=== PATIENT | female | born 1970 | race American Indian/Alaskan Native ===

== ENCOUNTER 2016-08-29 07:59 | Emergency (ER) | payer SELFPAY ==
[2016-08-29 08:31] VITALS: BP 145/95
[2016-08-29] MEDS ORDERED: NORCO 5/325 PO ONE (10:42)
[2016-08-29] MEDS ORDERED: TORADOL IM ONE (10:42)
--- NOTE | 2016-08-29 10:49 | Emergency Department Report ---
ED Neck Pain/Injury HPI - General Chief Complaint: Neck Pain/Injury Stated Complaint: PAIN IN NECK Time Seen by Provider: 08/29/16 10:39 Mode of arrival: Ambulatory Limitations: No Limitations - History of Present Illness Initial Comments: 46-year-old -[place] female with a past medical history of diabetes and bipolar comes in for complaint of right sided neck pain that radiates to her right shoulder for approximately one week. Patient reports that the pain is worse with movement. States that she did try Motrin and Vicodin that she got from her mother's states that it only caused temporary relief. Patient reports she is going through a lot recently her spouse . Patient does admit that she's been moving a lot. MD Complaint: neck pain -: week(s) (1) Radiation: right shoulder Severity: severe - Related Data Home Medications Medication Instructions Recorded Confirmed Last Taken FLUoxetine HCL [PROzac] 40 mg PO QDAY 01/21/14 01/21/14 Unknown Quetiapine Fumarate [SEROquel XR] 300 mg PO QDAY 01/21/14 01/21/14 01/21/14 300 Previous Rx's Medication Instructions Recorded Last Taken Type oxyCODONE /ACETAMINOPHEN [Percocet 1 tab PO Q6H PRN #12 tablet 01/21/14 Unknown Rx 5/325 mg] metFORMIN [Glucophage] 500 mg PO BIDDIAB #60 tablet 01/22/14 Unknown Rx HYDROcodone/APAP 5-325 [[place] 1 each PO Q6HR PRN #7 tablet 01/19/15 Unknown Rx 5/325] Lansoprazole [Prevacid] 15 mg PO BID #30 cap 01/19/15 Unknown Rx Ondansetron [Zofran TAB] 4 mg PO Q8HR PRN #7 tablet 01/19/15 Unknown Rx Cyclobenzaprine [Flexeril] 10 mg PO TID PRN #15 tablet 08/29/16 Unknown Rx Naproxen [Naprosyn TAB] 500 mg PO BID #20 tablet 08/29/16 Unknown Rx traMADol [Ultram 50 MG tab] 50 mg PO Q6HR PRN #20 tablet 08/29/16 Unknown Rx Allergies Allergy/AdvReac Type Severity Reaction Status Date / Time No Known Allergies Allergy Verified 08/29/16 08:24 ED Review of Systems ROS: Stated complaint: PAIN IN NECK Other details as noted in HPI Constitutional: denies: chills, fever Eyes: denies: eye pain, eye discharge, vision change ENT: denies: ear pain, throat pain Respiratory: denies: cough, shortness of breath, wheezing Cardiovascular: denies: chest pain, palpitations Endocrine: no symptoms reported Gastrointestinal: denies: abdominal pain, nausea, diarrhea Genitourinary: denies: urgency, dysuria, discharge Musculoskeletal: other (neck pain right side radiates to right shoulder) Neurological: denies: headache, weakness, paresthesias ED Past Medical Hx - Past Medical History Hx Congestive Heart Failure: No Hx Diabetes: Yes (NO MEDS) Hx GERD: Yes Hx Psychiatric Treatment: Yes (DEPRESSION / BIPOLAR) Hx Asthma: No Hx COPD: No Hx Dementia: No Additional medical history: gout - Surgical History Additional Surgical History: tubal ligation. left rotator cuff repair - Social History Smoking Status: Current Every Day Smoker Substance Use Type: Alcohol - Medications Home Medications: Home Medications Medication Instructions Recorded Confirmed Last Taken Type FLUoxetine HCL [PROzac] 40 mg PO QDAY 01/21/14 01/21/14 Unknown History Quetiapine Fumarate [SEROquel XR] 300 mg PO QDAY 01/21/14 01/21/14 01/21/14 History 300 oxyCODONE /ACETAMINOPHEN [Percocet 1 tab PO Q6H PRN #12 tablet 01/21/14 Unknown Rx 5/325 mg] metFORMIN [Glucophage] 500 mg PO BIDDIAB #60 tablet 01/22/14 Unknown Rx HYDROcodone/APAP 5-325 [[place] 1 each PO Q6HR PRN #7 tablet 01/19/15 Unknown Rx 5/325] Lansoprazole [Prevacid] 15 mg PO BID #30 cap 01/19/15 Unknown Rx Ondansetron [Zofran TAB] 4 mg PO Q8HR PRN #7 tablet 01/19/15 Unknown Rx Cyclobenzaprine [Flexeril] 10 mg PO TID PRN #15 tablet 08/29/16 Unknown Rx Naproxen [Naprosyn TAB] 500 mg PO BID #20 tablet 08/29/16 Unknown Rx traMADol [Ultram 50 MG tab] 50 mg PO Q6HR PRN #20 tablet 08/29/16 Unknown Rx ED Physical Exam - General Limitations: No Limitations General appearance: alert, in no apparent distress - Eye Eye exam: Present: normal appearance - ENT ENT exam: Present: normal exam, mucous membranes moist - Neck Neck exam: Present: normal inspection, tenderness (to the right paracervical and right trapezius.) - Respiratory Respiratory exam: Present: normal lung sounds bilaterally - Cardiovascular Cardiovascular Exam: Present: regular rate, normal rhythm, normal heart sounds ED Course Vital Signs 08/29/16 08:28 Temperature 98.2 F Pulse Rate 87 Respiratory 17 Rate Blood Pressure 145/95 O2 Sat by Pulse 100 Oximetry - Reevaluation(s) Reevaluation #1: 08/29/16 11:47 Patient reports that she feels better after having the injection and the [place]. She still reports that there is some pain. ED Medical Decision Making - Medical Decision Making Assessment evaluated by this provider fast track. Discussed the patient we'll give her Toradol injection and see if we can get her feeling better as well as [place] 5/325. Patient be discharged home on a muscle relaxant pain medication. Patient verbalizes understanding. Also discussed the patient that she needs to follow up with her primary care provider for pain management. Patient verbalized understanding Critical care attestation.: If time is entered above; I have spent that time in minutes in the direct care of this critically ill patient, excluding procedure time. ED Disposition Clinical Impression: Acute strain of neck muscle Qualifiers: Encounter type: initial encounter Qualified Code(s): S16.1XXA - Strain of muscle, fascia and tendon at neck level, initial encounter Disposition: DISCHARGED TO HOME OR SELFCARE Is pt being admited?: No Does the pt Need Aspirin: No Condition: Stable Additional Instructions: Please take muscle relaxants and pain medication as prescribed. Please follow- up with her primary care provider for further evaluation and ongoing pain management. Prescriptions: Cyclobenzaprine [Flexeril] 10 mg PO TID PRN #15 tablet PRN Reason: Muscle Spasm Naproxen [Naprosyn TAB] 500 mg PO BID #20 tablet traMADol [Ultram 50 MG tab] 50 mg PO Q6HR PRN #20 tablet PRN Reason: Pain Referrals: PRIMARY CARE, [Primary Care Provider] - 3-5 Days Forms: Accompanied Note, Work/School Release Form(ED)
== END 2016-08-29 12:06 | disposition home or self-care (01) ==
LOC: ED 07:59
DX: S16.1XXA Strain of muscle, fascia and tendon at neck level, initial encounter (principal); M25.511 Pain in right shoulder; E11.9 Type 2 diabetes mellitus without complications; K21.9 Gastro-esophageal reflux disease without esophagitis; F17.200 Nicotine dependence, unspecified, uncomplicated; X58.XXXA Exposure to other specified factors, initial encounter; Y93.89 Activity, other specified; Y99.8 Other external cause status; Y92.89 Other specified places as the place of occurrence of the external cause
CPT/HCPCS: 82962; 96372; 99283; J1885

== ENCOUNTER 2018-01-16 06:13 | Day surgery (SDC) | payer OTHER ==
[2018-01-16] MEDS ORDERED: ECOTRIN PO NR (06:48)
[2018-01-16] MEDS ORDERED: NACL 0.9% 500 ML 500 ML IV SCH (07:00)
[2018-01-16 07:48] LABS: Basophils # (Auto) 0.1 K/mm3 (0.0-0.1); Basophils % (Auto) 0.9 % (0.0-1.8); Eosinophils # (Auto) 0.1 K/mm3 (0.0-0.4); Eosinophils % (Auto) 0.8 % (0.0-4.3); Hematocrit 34.5 % (30.3-42.9); Hemoglobin 11.5 gm/dl (10.1-14.3); Lymphocytes # (Auto) 2.3 K/mm3 (1.2-5.4); Lymphocytes % (Auto) 29.7 % (13.4-35.0); Mean Corpuscular HGB Conc 33 % (30-34); Mean Corpuscular Hemoglobin 30 pg (28-32); Mean Corpuscular Volume 88 fl (79-97); Monocytes # (Auto) 0.4 K/mm3 (0.0-0.8); Monocytes % (Auto) 5.6 % (0.0-7.3); Platelet Count 156 K/mm3 (140-440); Red Blood Count 3.91 M/mm3 (3.65-5.03); Red Cell Distribution Width 14.4 % (13.2-15.2)
[2018-01-16 07:58] LABS: INR 0.88 (0.87-1.13)
[2018-01-16 07:59] LABS: Partial Thromboplastin Time 29.5 Sec. (24.2-36.6)
[2018-01-16 08:05] LABS: BUN/Creatinine Ratio 20; Blood Urea Nitrogen 14 mg/dL (7-17); Calcium 9.1 mg/dL (8.4-10.2); Hemolysis Index 3
[2018-01-16] MEDS ORDERED: VERSED ONE (08:26)
[2018-01-16] MEDS ORDERED: HEPARIN 10,000 UNITS/10 ML ONE (08:26)
[2018-01-16] MEDS ORDERED: HEPARIN/NS 5000 UNIT/500ML(CATH LAB) 1,000 ML IR ONE (08:26)
[2018-01-16] MEDS ORDERED: CALAN ONE (08:27)
[2018-01-16] MEDS ORDERED: SUBLIMAZE ONE (08:27)
[2018-01-16] MEDS ORDERED: NITROGLYCERIN SYRINGE 3 ML ONE (08:27)
[2018-01-16] MEDS ORDERED: XYLOCAINE 2% INFILTRATI ONE (08:27)
--- NOTE | 2018-01-16 10:31 | Cardiac Catherization Report ---
CARDIAC CATHETERIZATION REFERRING PHYSICIAN: Dr. Akira Armijo INDICATION FOR PROCEDURE: The patient is a pleasant a 47-year-old female with a history of obesity, hypertension, hyperlipidemia, abnormal treadmill stress test, recurrent chest pain, referred for left heart catheterization. Risks, benefits, and potential alternatives were explained in length prior to obtaining informed consent. PROCEDURE IN DETAIL: The patient was brought to the supervisor dental laboratory in a postabsorptive state, prepped and draped in a sterile fashion. Jose's test in right hand was normal. A 2 mL of 2% lidocaine used to anesthetize the right wrist. A standard 6-[place]ish hydrophilic sheath used to cannulate the right radial artery via modified Seldinger technique. All exchanges performed to exchange a J-tip guidewire. JL3.5 catheter used to engage the left main. No dampening or ventricularization. Cineangiography performed in all projections. Next, catheter exchanged for a JR4 catheter used to cross the aortic valve under fluoroscopic guidance. Left ventriculography performed in 30 ARREDONDO and 30 FRANCO projections via hand injections. Catheter flushed. Manual pullback performed with continuous pressure monitoring. Catheter used to engage the right coronary. No dampening or ventricularization. Cineangiography performed in all projections. Next, due to recurrent chest pain and nonobstructive coronary disease and hypertension, we proceeded with root aortogram in the FRANCO projection with a power injector/pigtail catheter. Next, catheter removed from the body of wire, sheath removed. Manual pressure used to achieve hemostasis. DATA: Aortic pressure is 180/90, LV pressure is 180. LVEDP of 20 mmHg. Left ventriculography revealed normal systolic performance with estimated ejection fraction of 55% to 60%. No evidence of aortic stenosis. CORONARY ANATOMY: It is a right dominant system. Left main is short. No significant disease, bifurcates left anterior descending and left circumflex. Left circumflex is a moderate sized vessel, courses AV groove. No significant disease in the left circumflex. Scattered luminal irregularities are noted. LAD is a moderate sized vessel, courses anterior interventricular groove. No significant disease in the LAD or diagonal branches. Right coronary is a moderate sized vessel, courses AV groove. No significant disease in the right dominant right coronary, scattered luminal irregularities. Root aortogram reveals normal contour, normal caliber, no evidence of dissection or penetrating aortic ulcer. Normal great vessel anatomy. I directly supervised the administration of moderate sedation from 9:07 a.m. to 9:30 a.m. CONCLUSIONS: 1. No angiographic evidence of significant epicardial coronary disease in this right dominant system. 2. Normal left ventricular systolic performance, estimated ejection fraction of 55% to 60%. 3. No evidence of aortic stenosis. 4. Root aortography without evidence of dissection/ulcer/aortic insufficiency. RECOMMENDATIONS: Recommend aggressive risk factor modification, blood pressure control, standard radial care. Continue aspirin and statin therapy. Results of procedure explained at length to the patient and family. All questions and concerns were addressed. JOB# [id number]/[email or web address]
[2018-01-16 13:10] VITALS: BP 162/81
== END 2018-01-16 13:20 | disposition home or self-care (01) ==
LOC: CATHLABREC 06:13
PROVIDERS: ATTEND Internal Medicine
DX: I25.119 Atherosclerotic heart disease of native coronary artery with unspecified angina pectoris (principal); I10 Essential (primary) hypertension; E78.00 Pure hypercholesterolemia, unspecified; K21.9 Gastro-esophageal reflux disease without esophagitis; F31.9 Bipolar disorder, unspecified; E66.9 Obesity, unspecified; Z68.37 Body mass index [BMI] 37.0-37.9, adult; Z79.899 Other long term (current) drug therapy; Z79.82 Long term (current) use of aspirin; Z79.84 Long term (current) use of oral hypoglycemic drugs; Z72.89 Other problems related to lifestyle; Z98.51 Tubal ligation status; Z87.891 Personal history of nicotine dependence; Z98.890 Other specified postprocedural states; Z82.49 Family history of ischemic heart disease and other diseases of the circulatory system
CPT/HCPCS: 36415; 80048; 85025; 85610; 85730; 93005; 93010; 93458; 93567; 99156; 99157; C1894; J1644; J2250; J3010; J7040; Q9967

== ENCOUNTER 2018-02-03 18:47 | Emergency (ER) | payer OTHER ==
[2018-02-03 19:23] VITALS: BP 157/93
[2018-02-03] MEDS ORDERED: NACL 0.9% 1000 ML 1,000 ML IV ONE (19:28)
[2018-02-03] MEDS ORDERED: TYLENOL PO ONE (19:28)
[2018-02-03 19:51] LABS: Basophils # (Auto) 0.1 K/mm3 (0.0-0.1); Basophils % (Auto) 0.7 % (0.0-1.8); Eosinophils # (Auto) 0.1 K/mm3 (0.0-0.4); Hematocrit 37.6 % (30.3-42.9); Hemoglobin 12.6 gm/dl (10.1-14.3); Lymphocytes # (Auto) 3.8 K/mm3 (1.2-5.4); Lymphocytes % (Auto) 32.2 % (13.4-35.0); Mean Corpuscular HGB Conc 33 % (30-34); Mean Corpuscular Hemoglobin 29 pg (28-32); Mean Corpuscular Volume 88 fl (79-97); Monocytes # (Auto) 0.5 K/mm3 (0.0-0.8); Monocytes % (Auto) 4.4 % (0.0-7.3); Platelet Count 192 K/mm3 (140-440); Red Blood Count 4.29 M/mm3 (3.65-5.03); Red Cell Distribution Width 14.5 % (13.2-15.2)
[2018-02-03 20:46] LABS: Bacteria,Urine 1+ /HPF (Negative); Bilirubin,Urine NEG (Negative); Blood,Urine NEG (Negative); Color,Urine Yellow (Yellow); Protein,Urine <15 mg/dL mg/dL (Negative)
[2018-02-03 20:54] LABS: Alanine Aminotransferase 13 units/L (7-56); Albumin 4.4 g/dL (3.9-5); BUN/Creatinine Ratio 27; Blood Urea Nitrogen 19 mg/dL (7-17); Calcium 9.9 mg/dL (8.4-10.2); Hemolysis Index 9
== END 2018-02-03 22:04 | disposition left against medical advice (07) ==
LOC: ED 18:47
DX: M54.5 Low back pain (principal); Z53.21 Procedure and treatment not carried out due to patient leaving prior to being seen by health care provider
CPT/HCPCS: 36415; 80053; 81001; 85025

== ENCOUNTER 2019-03-12 23:12 | Emergency (ER) | payer SELFPAY ==
[2019-03-12 23:30] VITALS: BP 187/91
[2019-03-12 23:57] LABS: Bilirubin,Urine NEG (Negative); Blood,Urine NEG (Negative); Color,Urine Yellow (Yellow); Mucus,Urine FEW /HPF; Protein,Urine <15 mg/dL mg/dL (Negative)
[2019-03-13] MEDS ORDERED: KETOROLAC 30 MG/1 ML INJ IM ONE (01:53)
--- NOTE | 2019-03-13 02:04 | Emergency Department Report ---
ED Back Pain/Injury HPI - General Chief Complaint: Back Pain/Injury Stated Complaint: LOWER BACK PAIN Time Seen by Provider: 03/13/19 01:53 Source: patient Limitations: No Limitations - History of Present Illness Initial Comments: Ms. Palacio is a 49 y/o aaf with hx of chronic low back pain. pt denies fall injury or trauma. pain is described as 4/10 aching. There is no numbness , no tingling, no loss or decrease in bowel or bladder function. pt is ambulatory to baseline per patient. MD Complaint: back pain Onset/Timin -: week(s) Similar Symptoms Previously: Yes Place: home Radiation: none Severity: moderate Severity scale (0 -10): 4 Quality: aching Consistency: constant Improves With: none Worsens With: movement Context: while lifting, turning/twisting, bending Associated Symptoms: denies: numbness, difficulty urinating, incontinence, fever/chills - Related Data Home Medications Medication Instructions Recorded Confirmed Last Taken Aspirin [Adult Low Dose Aspirin EC] 81 mg PO QDAY 01/16/18 01/16/18 01/15/18 Atenolol [Tenormin] 25 mg PO DAILY 01/16/18 01/16/18 01/15/18 AtorvaSTATin [Lipitor] 20 mg PO QHS 01/16/18 01/16/18 01/15/18 Divalproex ER [Depakote ER] 500 mg PO BID 01/16/18 01/16/18 01/15/18 Ergocalciferol [Vitamin D2] 50,000 unit PO QWEEK 01/16/18 01/16/18 01/14/18 Indomethacin 50 mg PO Q8H PRN 01/16/18 01/16/18 01/14/18 Lisinopril [Prinivil] 10 mg PO QDAY 01/16/18 01/16/18 01/15/18 Zolpidem [Ambien] 5 mg PO QHS PRN 01/16/18 01/16/18 01/15/18 metFORMIN [Glucophage] 500 mg PO BID 01/16/18 01/16/18 01/15/18 Previous Rx's Medication Instructions Recorded Last Taken Type Cyclobenzaprine [Flexeril] 10 mg PO TID PRN #30 tablet 03/13/19 Unknown Rx Menthol/Camphor [[place] 1 applicatio TP QID PRN #1 tube 03/13/19 Unknown Rx Ointment] Naproxen 500 mg PO BID PRN #30 tablet 03/13/19 Unknown Rx Allergies Allergy/AdvReac Type Severity Reaction Status Date / Time No Known Allergies Allergy Verified 08/29/16 08:24 ED Review of Systems ROS: Stated complaint: LOWER BACK PAIN Other details as noted in HPI Constitutional: denies: chills, fever Eyes: denies: eye pain, eye discharge, vision change ENT: denies: ear pain, throat pain Respiratory: denies: cough, shortness of breath, wheezing Cardiovascular: denies: chest pain, palpitations Endocrine: no symptoms reported Gastrointestinal: denies: abdominal pain, nausea, diarrhea Genitourinary: denies: urgency, dysuria, discharge Musculoskeletal: back pain, arthralgia. denies: joint swelling Skin: denies: rash, lesions Neurological: as per HPI Psychiatric: denies: anxiety, depression Hematological/Lymphatic: denies: easy bleeding, easy bruising ED Past Medical Hx - Past Medical History Previous Medical History?: Yes Hx Hypertension: Yes Hx Congestive Heart Failure: No Hx Diabetes: Yes (type 2) Hx GERD: Yes Hx Psychiatric Treatment: Yes (DEPRESSION / BIPOLAR) Hx Asthma: No Hx COPD: No Hx Dementia: No Additional medical history: gout - Surgical History Past Surgical History?: Yes Additional Surgical History: tubal ligation. left rotator cuff repair - Social History Smoking Status: Current Every Day Smoker Substance Use Type: Alcohol - Medications Home Medications: Home Medications Medication Instructions Recorded Confirmed Last Taken Type Aspirin [Adult Low Dose Aspirin EC] 81 mg PO QDAY 01/16/18 01/16/18 01/15/18 History Atenolol [Tenormin] 25 mg PO DAILY 01/16/18 01/16/18 01/15/18 History AtorvaSTATin [Lipitor] 20 mg PO QHS 01/16/18 01/16/18 01/15/18 History Divalproex ER [Depakote ER] 500 mg PO BID 01/16/18 01/16/18 01/15/18 History Ergocalciferol [Vitamin D2] 50,000 unit PO QWEEK 01/16/18 01/16/18 01/14/18 History Indomethacin 50 mg PO Q8H PRN 01/16/18 01/16/18 01/14/18 History Lisinopril [Prinivil] 10 mg PO QDAY 01/16/18 01/16/18 01/15/18 History Zolpidem [Ambien] 5 mg PO QHS PRN 01/16/18 01/16/18 01/15/18 History metFORMIN [Glucophage] 500 mg PO BID 01/16/18 01/16/18 01/15/18 History Cyclobenzaprine [Flexeril] 10 mg PO TID PRN #30 tablet 03/13/19 Unknown Rx Menthol/Camphor [[place] 1 applicatio TP QID PRN #1 tube 03/13/19 Unknown Rx Ointment] Naproxen 500 mg PO BID PRN #30 tablet 03/13/19 Unknown Rx ED Physical Exam - General Limitations: No Limitations General appearance: alert, in no apparent distress - Head Head exam: Present: atraumatic, normocephalic - Eye Eye exam: Present: normal appearance, PERRL, EOMI Pupils: Present: normal accommodation - ENT ENT exam: Present: mucous membranes moist - Neck Neck exam: Present: normal inspection, full ROM. Absent: tenderness, meningismus - Expanded Neck Exam Expanded Neck exam: Absent: tenderness, midline deformity, anterior neck swelling, tracheal deviation - Respiratory Respiratory exam: Present: normal lung sounds bilaterally. Absent: respiratory distress, wheezes, stridor, chest wall tenderness - Cardiovascular Cardiovascular Exam: Present: regular rate, normal rhythm, normal heart sounds. Absent: systolic murmur, diastolic murmur, rubs, gallop - GI/Abdominal GI/Abdominal exam: Present: soft, normal bowel sounds. Absent: distended, tenderness, bruit, hernia - Rectal Rectal exam: Present: deferred - Extremities Exam Extremities exam: Present: normal inspection, full ROM, normal capillary refill. Absent: tenderness - Back Exam Back exam: Present: normal inspection, full ROM. Absent: tenderness, CVA tenderness (R), CVA tenderness (L), muscle spasm, paraspinal tenderness, vertebral tenderness, rash noted - Neurological Exam Neurological exam: Present: alert, oriented X3, CN II-XII intact, normal gait, reflexes normal. Absent: motor sensory deficit - Expanded Neurological Exam Expanded Patient oriented to: Present: person, place, time Speech: Present: fluid speech Cranial nerves: EOM's Intact: Normal, Gag Reflex: Normal, Tongue Deviation: Normal, Nystagmus: Normal, Facial Sensation: Normal Motor strength exam: RUE: 5, LUE: 5, RLE: 5, LLE: 5 Best Eye Response ([place]): (4) open spontaneously Best Motor Response ([place]): (6) obeys commands Best Verbal Response ([place]): (5) oriented [place] Total: 15 - Psychiatric Psychiatric exam: Present: normal affect, normal mood - Skin Skin exam: Present: warm, dry, intact, normal color. Absent: rash ED Course Vital Signs 03/12/19 23:28 Temperature 98.0 F Pulse Rate 95 H Respiratory 18 Rate Blood Pressure 187/91 O2 Sat by Pulse 97 Oximetry ED Medical Decision Making - Lab Data Labs 03/12/19 Unknown Urine Color Yellow Urine Turbidity Clear Urine pH 6.0 Ur Specific [place] 1.026 Urine Protein <15 mg/dl Urine Glucose (UA) Neg Urine Ketones Tr Urine Blood Neg Urine Nitrite Neg Urine Bilirubin Neg Urine Urobilinogen 2.0 Ur Leukocyte Esterase Sm Urine WBC (Auto) 1.0 Urine RBC (Auto) 2.0 U Epithel Cells (Auto) 8.0 Urine Mucus Few - Medical Decision Making pain is improved, plan: nsaids, muscle relaxants, analgesic balm, and moist heat therapy, follow up with pcp in 2-3 days, return to emergency if symptoms worsen. pt verbalized agreement and understanding of discharge plan. pt is currently a/o x 3 ambulatory with steady gait. Pain reduced to 2/10 at this time. Critical care attestation.: If time is entered above; I have spent that time in minutes in the direct care of this critically ill patient, excluding procedure time. ED Disposition Clinical Impression: Low back strain Qualifiers: Encounter type: initial encounter Qualified Code(s): S39.012A - Strain of muscle, fascia and tendon of lower back, initial encounter Disposition: TO HOME OR SELFCARE Is pt being admited?: No Does the pt Need Aspirin: No Condition: Stable Instructions: Muscle Strain (ED), Low Back Strain (ED), Core Strengthening Exercises (GEN) Prescriptions: Cyclobenzaprine [Flexeril] 10 mg PO TID PRN #30 tablet PRN Reason: Muscle Spasm Naproxen 500 mg PO BID PRN #30 tablet PRN Reason: pain Menthol/Camphor [[place] Ointment] 1 applicatio TP QID PRN #1 tube PRN Reason: pain Referrals: CONOR LASSITER MD [Staff Physician] - 3-5 Days Forms: Work/School Release Form(ED) Time of Disposition: 02:16
== END 2019-03-13 02:30 | disposition home or self-care (01) ==
LOC: ED 23:12
DX: S39.012A Strain of muscle, fascia and tendon of lower back, initial encounter (principal); X58.XXXA Exposure to other specified factors, initial encounter; Y93.89 Activity, other specified; Y92.89 Other specified places as the place of occurrence of the external cause; Y99.8 Other external cause status
CPT/HCPCS: 81001; 96372; 99283; J1885

== ENCOUNTER 2020-06-26 08:33 | Emergency (ER) | payer OTHER ==
[2020-06-26 08:42] VITALS: BP 181/74
[2020-06-26] MEDS ORDERED: KETOROLAC 60 MG/2 ML INJ IM ONE (08:45)
[2020-06-26] MEDS ORDERED: HYDROcodone/ACETAMINOPHEN 10-325MG TAB PO ONE (08:45)
[2020-06-26] MEDS ORDERED: GABAPENTIN 100 MG CAP PO ONE (08:45)
[2020-06-26] MEDS ORDERED: LIDOCAINE 5% 1 EACH PATCH TD STA (08:48)
--- NOTE | 2020-06-26 08:49 | Emergency Department Report ---
ED Back Pain/Injury HPI - General Chief Complaint: Back Pain/Injury Stated Complaint: BACK AND RT LEG PAIN Time Seen by Provider: 06/26/20 08:37 Source: patient Limitations: No Limitations - History of Present Illness Initial Comments: 50-year-old female with a past medical history of hypertension, diabetes, tobacco use, hyperlipidemia and chronic back pain/sciatica presents to the ER today complaining of a flareup of her sciatica. Patient states that symptoms flared up about 2 days ago. She states that she has been living with her friend who has lots of steps and she has been doing lots of climbing of steps lately but otherwise denies any other strenuous activity or injury. She states that the pain is in her lower back/buttocks and radiates intermittently down into her thighs posteriorly. She states that the pain is worse with ambulation, sitting, or any other movement. She denies any associated abdominal pain, bowel or bladder incontinence, urinary retention or constipation, lower extremity numbness, tingling or weakness. She states that she has Percocet at home for pain but she stopped taking it about a week ago because it makes her nauseous and it does not really help the pain. She states that she does have a "clinical services specialist" and she states that she is currently waiting on her insurance approval for her to have an MRI of her lumbar spine. Complaint: back pain -: Gradual (2 days ago) - Related Data Home Medications Medication Instructions Recorded Confirmed Last Taken Aspirin [Adult Low Dose Aspirin EC] 81 mg PO QDAY 01/16/18 01/16/18 01/15/18 AtorvaSTATin [Lipitor] 20 mg PO QHS 01/16/18 01/16/18 01/15/18 Divalproex ER [Depakote ER] 500 mg PO BID 01/16/18 01/16/18 01/15/18 Ergocalciferol [Vitamin D2] 50,000 unit PO QWEEK 01/16/18 01/16/18 01/14/18 Indomethacin 50 mg PO Q8H PRN 01/16/18 01/16/18 01/14/18 Zolpidem [Ambien] 5 mg PO QHS PRN 01/16/18 01/16/18 01/15/18 atenoloL [Tenormin] 25 mg PO DAILY 01/16/18 01/16/18 01/15/18 lisinopriL [Prinivil] 10 mg PO QDAY 01/16/18 01/16/18 01/15/18 metFORMIN [Glucophage] 500 mg PO BID 01/16/18 01/16/18 01/15/18 Previous Rx's Medication Instructions Recorded Last Taken Type Menthol/Camphor [[place] 1 applicatio TP QID PRN #1 tube 03/13/19 Unknown Rx Ointment] HYDROcodone/APAP 5-325 [[place] 1 - 2 each PO Q4HR PRN #10 tablet 06/26/20 Unknown Rx 5/325] Ketorolac [Toradol] 10 mg PO Q6H PRN #20 tablet 06/26/20 Unknown Rx Lidocaine [Lidocaine Pain Relief] 1 each TP Q12HR #10 adh..patch 06/26/20 Unknown Rx methOCARBAMOL [Robaxin TAB] 750 mg PO Q8H PRN #30 tablet 06/26/20 Unknown Rx Allergies Allergy/AdvReac Type Severity Reaction Status Date / Time No Known Allergies Allergy Verified 08/29/16 08:24 ED Review of Systems ROS: Stated complaint: BACK AND RT LEG PAIN Other details as noted in HPI ED Past Medical Hx - Past Medical History Previous Medical History?: Yes Hx Hypertension: Yes Hx Congestive Heart Failure: No Hx Diabetes: Yes (type 2) Hx GERD: Yes Hx Psychiatric Treatment: Yes (DEPRESSION / BIPOLAR) Hx Asthma: No Hx COPD: No Hx Dementia: No Additional medical history: gout, back injury and pain - Surgical History Past Surgical History?: Yes Additional Surgical History: tubal ligation. left rotator cuff repair - Social History Smoking Status: Current Every Day Smoker Substance Use Type: Alcohol - Medications Home Medications: Home Medications Medication Instructions Recorded Confirmed Last Taken Type Aspirin [Adult Low Dose Aspirin EC] 81 mg PO QDAY 01/16/18 01/16/18 01/15/18 History AtorvaSTATin [Lipitor] 20 mg PO QHS 01/16/18 01/16/18 01/15/18 History Divalproex ER [Depakote ER] 500 mg PO BID 01/16/18 01/16/18 01/15/18 History Ergocalciferol [Vitamin D2] 50,000 unit PO QWEEK 01/16/18 01/16/18 01/14/18 History Indomethacin 50 mg PO Q8H PRN 01/16/18 01/16/18 01/14/18 History Zolpidem [Ambien] 5 mg PO QHS PRN 01/16/18 01/16/18 01/15/18 History atenoloL [Tenormin] 25 mg PO DAILY 01/16/18 01/16/18 01/15/18 History lisinopriL [Prinivil] 10 mg PO QDAY 01/16/18 01/16/18 01/15/18 History metFORMIN [Glucophage] 500 mg PO BID 01/16/18 01/16/18 01/15/18 History Menthol/Camphor [[place] 1 applicatio TP QID PRN #1 tube 03/13/19 Unknown Rx Ointment] HYDROcodone/APAP 5-325 [[place] 1 - 2 each PO Q4HR PRN #10 tablet 06/26/20 Unknown Rx 5/325] Ketorolac [Toradol] 10 mg PO Q6H PRN #20 tablet 06/26/20 Unknown Rx Lidocaine [Lidocaine Pain Relief] 1 each TP Q12HR #10 adh..patch 06/26/20 Unknown Rx methOCARBAMOL [Robaxin TAB] 750 mg PO Q8H PRN #30 tablet 06/26/20 Unknown Rx ED Physical Exam - General Limitations: No Limitations General appearance: alert, anxious, in distress (pain ) - Head Head exam: Present: atraumatic, normocephalic, normal inspection - Eye Eye exam: Present: normal appearance, PERRL, EOMI Pupils: Present: normal accommodation - ENT ENT exam: Present: normal exam, mucous membranes moist ED Course Vital Signs 06/26/20 06/26/20 06/26/20 08:39 10:03 10:05 Temperature 98.1 F Pulse Rate 106 H Respiratory 20 22 22 Rate Blood Pressure 181/74 O2 Sat by Pulse 100 Oximetry ED Medical Decision Making - Medical Decision Making 1055: Patient reports that her pain has improved with meds. The patient presented with flare up of her chronic back pain. She is alert, talkative, and interactive and not in any distress at this time. The patient is neurologically intact. the patient has no fever, no bowel or bladder incontinence, no saddle anesthesia and is otherwise alert and well-appearing. With history, physical examination and diagnostic testing does not suggest the presence of acute spinal epidural abscess, acute epidural bleed, cauda equina syndrome, abdominal/thoracic aortic aneurysm, aortic dissection or other acute process requiring further testing, treatment or consultation in the emergency department. The vital signs have been stable. The patient condition is stable and appropriate for discharge. The patient will pursue further outpatient evaluation with the primary care physician. Critical care attestation.: If time is entered above; I have spent that time in minutes in the direct care of this critically ill patient, excluding procedure time. ED Disposition Clinical Impression: Sciatica Disposition: DC-01 TO HOME OR SELFCARE Is pt being admited?: No Does the pt Need Aspirin: No Condition: Stable Instructions: Sciatica, [id number] Additional Instructions: Take the medication as prescribed. Follow up with your "clinical services specialist" next week. Return to ED if worse or changes Prescriptions: Lidocaine [Lidocaine Pain Relief] 1 each TP Q12HR #10 adh..patch HYDROcodone/APAP 5-325 [Falls 5/325] 1 - 2 each PO Q4HR PRN #10 tablet PRN Reason: Pain methOCARBAMOL [Robaxin TAB] 750 mg PO Q8H PRN #30 tablet PRN Reason: Muscle Spasm Ketorolac [Toradol] 10 mg PO Q6H PRN #20 tablet PRN Reason: Pain Referrals: MARIA VICTORIA STOREY MD [Other] - 3-5 Days Time of Disposition: 10:58
[2020-06-26] MEDS: ONDANSETRON 4 MG ODT TAB PO ONE ×2 (10:03→10:04)
== END 2020-06-26 11:06 | disposition home or self-care (01) ==
LOC: ED 08:33
DX: M54.30 Sciatica, unspecified side (principal); I10 Essential (primary) hypertension; E11.9 Type 2 diabetes mellitus without complications; K21.9 Gastro-esophageal reflux disease without esophagitis; F31.9 Bipolar disorder, unspecified; F17.200 Nicotine dependence, unspecified, uncomplicated; Z98.51 Tubal ligation status; Z98.890 Other specified postprocedural states; Z79.899 Other long term (current) drug therapy
CPT/HCPCS: 96372; 99282; J1885; Q0162

== ENCOUNTER 2021-03-28 15:31 | Emergency (ER) | payer SELFPAY ==
[2021-03-28] MEDS ORDERED: SODIUM CHLORIDE 0.9% 1000 ML 1,000 ML IV ONE ×2 (16:29→18:24)
--- NOTE | 2021-03-28 16:57 | XRay Report ---
CHEST 2 VIEWS INDICATION / CLINICAL INFORMATION: cough, tachycardia. COMPARISON: None available. FINDINGS: SUPPORT DEVICES: None. HEART / MEDIASTINUM: No significant abnormality. LUNGS / PLEURA: No significant pulmonary or pleural abnormality. No pneumothorax. ADDITIONAL FINDINGS: No significant additional findings. IMPRESSION: 1. No acute findings. Signer Name: Tarun Romero MD Signed: 03/28/2021 4:52 PM Workstation Name: [id number]
--- NOTE | 2021-03-28 17:01 | Emergency Department Report ---
ED General Adult HPI - General Chief complaint: Upper Respiratory Infection Stated complaint: DIZZY, BODY ACHES, HEADACHE, HIVES Source: patient Mode of arrival: Ambulatory Limitations: No Limitations - History of Present Illness Initial comments: 51-year-old -[place] female patient presents with complaints of cough, body aches and chills, congestion, and nausea x3 days. Past medical history includes hypertension, diabetes, and bipolar disorder. She states cough is productive of mucus and denies any hemoptysis, leg pain/swelling, recent long travel, history of DVT/PE/cancer, hormone use, or chest pain. No loss of taste or smell per patient. She states she is fully vaccinated against COVID-19. She also denies any abdominal pain or stool changes or urinary symptom. Patient also reports itchy rash that started on her arms and is now on her legs. She states itching and rash improved with Benadryl, however returns after a few hours. No new medications or change in patient's products per patient. -: Sudden - Related Data Home Medications Medication Instructions Recorded Confirmed Last Taken Aspirin [Adult Low Dose Aspirin EC] 81 mg PO QDAY 01/16/18 01/16/18 01/15/18 AtorvaSTATin [Lipitor] 20 mg PO QHS 01/16/18 01/16/18 01/15/18 Divalproex ER [Depakote ER] 500 mg PO BID 01/16/18 01/16/18 01/15/18 Ergocalciferol [Vitamin D2] 50,000 unit PO QWEEK 01/16/18 01/16/18 01/14/18 Indomethacin 50 mg PO Q8H PRN 01/16/18 01/16/18 01/14/18 Zolpidem [Ambien] 5 mg PO QHS PRN 01/16/18 01/16/18 01/15/18 atenoloL [Tenormin] 25 mg PO DAILY 01/16/18 01/16/18 01/15/18 lisinopriL [Prinivil] 10 mg PO QDAY 01/16/18 01/16/18 01/15/18 metFORMIN [Glucophage] 500 mg PO BID 01/16/18 01/16/18 01/15/18 Previous Rx's Medication Instructions Recorded Last Taken Type Menthol/Camphor [[place] 1 applicatio TP QID PRN #1 tube 03/13/19 Unknown Rx Ointment] HYDROcodone/APAP 5-325 [[place] 1 - 2 each PO Q4HR PRN #10 tablet 06/26/20 Unknown Rx 5/325] Ketorolac [Toradol] 10 mg PO Q6H PRN #20 tablet 06/26/20 Unknown Rx Lidocaine [Lidocaine Pain Relief] 1 each TP Q12HR #10 adh..patch 06/26/20 Unknown Rx methOCARBAMOL [Robaxin TAB] 750 mg PO Q8H PRN #30 tablet 06/26/20 Unknown Rx Azithromycin [Zithromax Z-SIGIFREDO] 0 mg PO DAILY #6 tab 03/28/21 Unknown Rx Famotidine [Pepcid] 20 mg PO BID PRN 7 Days #14 tablet 03/28/21 Unknown Rx Loratadine [Claritin] 10 mg PO QDAY PRN #10 tablet 03/28/21 Unknown Rx Triamcinolone Acetonide 1 gm TP TID PRN 7 Days #2 oint...g. 03/28/21 Unknown Rx guaiFENesin/DEXTROMETHORPHAN 1 each PO BID PRN #14 tab.er.12h 03/28/21 Unknown Rx [Mucinex Dm ER 1,200-60 mg Tab] Allergies Allergy/AdvReac Type Severity Reaction Status Date / Time No Known Allergies Allergy Verified 08/29/16 08:24 ED Review of Systems ROS: Stated complaint: DIZZY, BODY ACHES, HEADACHE, HIVES Other details as noted in HPI Constitutional: chills, malaise, weakness. denies: diaphoresis, fever ENT: denies: throat pain Respiratory: cough. denies: shortness of breath Cardiovascular: denies: chest pain Gastrointestinal: nausea. denies: abdominal pain, vomiting, diarrhea Genitourinary: denies: urgency, dysuria, frequency, hematuria Musculoskeletal: denies: back pain Skin: rash. denies: change in color ED Past Medical Hx - Past Medical History Hx Hypertension: Yes Hx Congestive Heart Failure: No Hx Diabetes: Yes (type 2) Hx GERD: Yes Hx Psychiatric Treatment: Yes (DEPRESSION / BIPOLAR) Hx Asthma: No Hx COPD: No Hx Dementia: No Additional medical history: gout, back injury and pain - Surgical History Additional Surgical History: tubal ligation. left rotator cuff repair - Social History Smoking Status: Current Every Day Smoker Substance Use Type: Alcohol - Medications Home Medications: Home Medications Medication Instructions Recorded Confirmed Last Taken Type Aspirin [Adult Low Dose Aspirin EC] 81 mg PO QDAY 01/16/18 01/16/18 01/15/18 History AtorvaSTATin [Lipitor] 20 mg PO QHS 01/16/18 01/16/18 01/15/18 History Divalproex ER [Depakote ER] 500 mg PO BID 01/16/18 01/16/18 01/15/18 History Ergocalciferol [Vitamin D2] 50,000 unit PO QWEEK 01/16/18 01/16/18 01/14/18 History Indomethacin 50 mg PO Q8H PRN 01/16/18 01/16/18 01/14/18 History Zolpidem [Ambien] 5 mg PO QHS PRN 01/16/18 01/16/18 01/15/18 History atenoloL [Tenormin] 25 mg PO DAILY 01/16/18 01/16/18 01/15/18 History lisinopriL [Prinivil] 10 mg PO QDAY 01/16/18 01/16/18 01/15/18 History metFORMIN [Glucophage] 500 mg PO BID 01/16/18 01/16/18 01/15/18 History Menthol/Camphor [[place] 1 applicatio TP QID PRN #1 tube 03/13/19 Unknown Rx Ointment] HYDROcodone/APAP 5-325 [[place] 1 - 2 each PO Q4HR PRN #10 tablet 06/26/20 Unknown Rx 5/325] Ketorolac [Toradol] 10 mg PO Q6H PRN #20 tablet 06/26/20 Unknown Rx Lidocaine [Lidocaine Pain Relief] 1 each TP Q12HR #10 adh..patch 06/26/20 Unknown Rx methOCARBAMOL [Robaxin TAB] 750 mg PO Q8H PRN #30 tablet 06/26/20 Unknown Rx Azithromycin [Zithromax Z-SIGIFREDO] 0 mg PO DAILY #6 tab 03/28/21 Unknown Rx Famotidine [Pepcid] 20 mg PO BID PRN 7 Days #14 tablet 03/28/21 Unknown Rx Loratadine [Claritin] 10 mg PO QDAY PRN #10 tablet 03/28/21 Unknown Rx Triamcinolone Acetonide 1 gm TP TID PRN 7 Days #2 oint...g. 03/28/21 Unknown Rx guaiFENesin/DEXTROMETHORPHAN 1 each PO BID PRN #14 tab.er.12h 03/28/21 Unknown Rx [Mucinex Dm ER 1,200-60 mg Tab] ED Physical Exam - General Limitations: No Limitations General appearance: alert, in no apparent distress - Head Head exam: Present: atraumatic, normocephalic - Eye Eye exam: Present: normal appearance. Absent: scleral icterus - Neck Neck exam: Present: normal inspection, full ROM - Respiratory Respiratory exam: Present: rhonchi (right lower lung ). Absent: respiratory distress, wheezes, rales, stridor, prolonged expiratory - Cardiovascular Cardiovascular Exam: Present: regular rate - Neurological Exam Neurological exam: Present: alert, oriented X3, normal gait - Psychiatric Psychiatric exam: Present: normal affect, normal mood - Skin Skin exam: Present: warm, dry, intact, normal color, rash (Urticarial rash noted to left lateral buttock and thigh and mildly to distal forearms bilaterally; no surrounding cellulitic changes or drainage noted; rash is nontender) ED Course Vital Signs 03/28/21 03/28/21 03/28/21 15:57 17:01 17:12 Temperature 99.0 F Pulse Rate 121 H Respiratory 20 Rate Blood Pressure 148/89 O2 Sat by Pulse 93 95 97 Oximetry 03/28/21 03/28/21 03/28/21 17:15 17:31 17:45 Temperature Pulse Rate 107 H Respiratory 22 Rate Blood Pressure 157/75 154/89 164/79 O2 Sat by Pulse 98 98 97 Oximetry 03/28/21 03/28/21 03/28/21 18:01 18:15 18:31 Temperature Pulse Rate 117 H 100 H 117 H Respiratory 22 26 H 31 H Rate Blood Pressure 163/87 154/89 150/94 O2 Sat by Pulse 97 93 96 Oximetry 03/28/21 03/28/21 03/28/21 18:45 19:01 19:15 Temperature Pulse Rate 102 H Respiratory 24 16 Rate Blood Pressure 150/94 140/53 140/53 O2 Sat by Pulse 97 98 97 Oximetry ED Medical Decision Making - Lab Data Result diagrams: 03/28/21 16:59 03/28/21 16:59 Lab Results 03/28/21 03/28/21 03/28/21 Range/Units 16:59 16:59 17:35 WBC 8.4 (4.5-11.0) K/mm3 RBC 4.39 (3.65-5.03) M/mm3 Hgb 12.4 (10.1-14.3) gm/dl Hct 38.5 (30.3-42.9) % MCV 88 (79-97) fl MCH 28 (28-32) pg MCHC 32 (30-34) % RDW 14.5 (13.2-15.2) % Plt Count 171 (140-440) K/mm3 Lymph % (Auto) 11.3 L (13.4-35.0) % [place] % (Auto) 3.4 (0.0-7.3) % Eos % (Auto) 0.4 (0.0-4.3) % Baso % (Auto) 0.5 (0.0-1.8) % Lymph # (Auto) 1.0 L (1.2-5.4) K/mm3 [place] # (Auto) 0.3 (0.0-0.8) K/mm3 Eos # (Auto) 0.0 (0.0-0.4) K/mm3 Baso # (Auto) 0.0 (0.0-0.1) K/mm3 Seg Neutrophils % 84.4 H (40.0-70.0) % Seg Neutrophils # 7.1 (1.8-7.7) K/mm3 VBG pH (7.320-7.420) Sodium 139 (137-145) mmol/L Potassium 3.4 L (3.6-5.0) mmol/L Chloride 105.6 (98-107) mmol/L Carbon Dioxide 18 L (22-30) mmol/L Anion Gap 19 mmol/L BUN 7 (7-17) mg/dL Creatinine 0.4 L (0.6-1.2) mg/dL Estimated GFR > 60 ml/min BUN/Creatinine Ratio 18 % Glucose 180 H (65-100) mg/dL POC Glucose 180 H (70-105) mg/dL Calcium 7.2 L (8.4-10.2) mg/dL Total Bilirubin < 0.20 (0.1-1.2) mg/dL AST 14 (5-40) units/L ALT 14 (7-56) units/L Alkaline Phosphatase 87 (35-129) units/L Total Protein 5.9 L (6.3-8.2) g/dL Albumin 3.1 L (3.9-5) g/dL Albumin/Globulin Ratio 1.1 % Urine Color (Yellow) Urine Turbidity (Clear) Urine pH (5.0-7.0) Ur Specific [place] (1.003-1.030) Urine Protein (Negative) mg/dL Urine Glucose (UA) (Negative) mg/dL Urine Ketones (Negative) mg/dL Urine Blood (Negative) Urine Nitrite (Negative) Urine Bilirubin (Negative) Urine Urobilinogen (<2.0) mg/dL Ur Leukocyte Esterase (Negative) Urine WBC (Auto) (0.0-6.0) /HPF Urine RBC (Auto) (0.0-6.0) /HPF U Epithel Cells (Auto) (0-13.0) /HPF Urine Mucus /HPF Influenza A (Rapid) (Negative) Influenza B (Rapid) (Negative) 03/28/21 03/28/21 03/28/21 Range/Units 18:45 Unknown Unknown WBC (4.5-11.0) K/mm3 RBC (3.65-5.03) M/mm3 Hgb (10.1-14.3) gm/dl Hct (30.3-42.9) % MCV (79-97) fl MCH (28-32) pg MCHC (30-34) % RDW (13.2-15.2) % Plt Count (140-440) K/mm3 Lymph % (Auto) (13.4-35.0) % [place] % (Auto) (0.0-7.3) % Eos % (Auto) (0.0-4.3) % Baso % (Auto) (0.0-1.8) % Lymph # (Auto) (1.2-5.4) K/mm3 [place] # (Auto) (0.0-0.8) K/mm3 Eos # (Auto) (0.0-0.4) K/mm3 Baso # (Auto) (0.0-0.1) K/mm3 Seg Neutrophils % (40.0-70.0) % Seg Neutrophils # (1.8-7.7) K/mm3 VBG pH 7.397 (7.320-7.420) Sodium (137-145) mmol/L Potassium (3.6-5.0) mmol/L Chloride (98-107) mmol/L Carbon Dioxide (22-30) mmol/L Anion Gap mmol/L BUN (7-17) mg/dL Creatinine (0.6-1.2) mg/dL Estimated GFR ml/min BUN/Creatinine Ratio % Glucose (65-100) mg/dL POC Glucose (70-105) mg/dL Calcium (8.4-10.2) mg/dL Total Bilirubin (0.1-1.2) mg/dL AST (5-40) units/L ALT (7-56) units/L Alkaline Phosphatase (35-129) units/L Total Protein (6.3-8.2) g/dL Albumin (3.9-5) g/dL Albumin/Globulin Ratio % Urine Color Yellow (Yellow) Urine Turbidity Slightly-cloudy (Clear) Urine pH 5.0 (5.0-7.0) Ur Specific [place] 1.026 (1.003-1.030) Urine Protein 30 mg/dl (Negative) mg/dL Urine Glucose (UA) Neg (Negative) mg/dL Urine Ketones Neg (Negative) mg/dL Urine Blood Neg (Negative) Urine Nitrite Neg (Negative) Urine Bilirubin Neg (Negative) Urine Urobilinogen < 2.0 (<2.0) mg/dL Ur Leukocyte Esterase Neg (Negative) Urine WBC (Auto) 2.0 (0.0-6.0) /HPF Urine RBC (Auto) 2.0 (0.0-6.0) /HPF U Epithel Cells (Auto) 5.0 (0-13.0) /HPF Urine Mucus Few /HPF Influenza A (Rapid) Negative (Negative) Influenza B (Rapid) Negative (Negative) - Radiology Data Radiology results: report reviewed CHEST 2 VIEWS INDICATION / CLINICAL INFORMATION: cough, tachycardia. COMPARISON: None available. FINDINGS: SUPPORT DEVICES: None. HEART / MEDIASTINUM: No significant abnormality. LUNGS / PLEURA: No significant pulmonary or pleural abnormality. No p neumothorax. ADDITIONAL FINDINGS: No significant additional findings. IMPRESSION: 1. No acute findings. - Medical Decision Making 51-year-old -[place] female patient presents with complaints of cough, body aches and chills, congestion, and nausea x3 days. Past medical history includes hypertension, diabetes, and bipolar disorder. She states cough is productive of mucus and denies any hemoptysis, leg pain/swelling, recent long travel, history of DVT/PE/cancer, hormone use, or chest pain. No loss of taste or smell per patient. She states she is fully vaccinated against COVID-19. She also denies any abdominal pain or stool changes or urinary symptom. Patient also reports itchy rash that started on her arms and is now on her legs. She states itching and rash improved with Benadryl, however returns after a few hours. No new medications or change in patient's products per patient. Patient admits to history of cigarette smoking and states she has been using again for the past few days White count is normal on CBC. Blood glucose 180. Anion gap 19 and bicarb mildly low. Venous pH is normal. Heart rate initially upon arrival noted to be 121 with a normal temperature. Patient given 2 L of normal saline and Benadryl. X-ray of the chest was also normal. Given history of smoking along with diabetes and rhonchi noted on exam, will cover for bacterial lower respiratory tract infection with Z-Sigifredo. Recommend outpatient COVID-19 testing within the next 24 to 48 hours and self quarantine until results are back. Ambulatory pulse ox reported by nursing who states oxygen remains >95% on room air with ambulation. Patient states she is feeling much better after the fluids. Her vitals are stable. Discussed presumptive diagnosis, care plan, and signs and symptoms that should prompt immediate return to ED with patient who verbalizes understanding. She is to follow-up with her primary care doctor 3 to 5 days. Critical care attestation.: If time is entered above; I have spent that time in minutes in the direct care of this critically ill patient, excluding procedure time. ED Disposition Clinical Impression: Lower resp. tract infection, Person under investigation for COVID-19, Hives Disposition: HOME / SELF CARE / HOMELESS Is pt being admited?: No Condition: Stable Instructions: Acute Bronchitis, Adult, [id number], Prevent the Spread of COVID-19 if You Are Sick - [facility] Prescriptions: Loratadine [Claritin] 10 mg PO QDAY PRN #10 tablet PRN Reason: rash/itching guaiFENesin/DEXTROMETHORPHAN [Mucinex Dm ER 1,200-60 mg Tab] 1 each PO BID PRN #14 tab.er.12h PRN Reason: caugh, congestion Famotidine [Pepcid] 20 mg PO BID PRN 7 Days #14 tablet PRN Reason: rash/itching Triamcinolone Acetonide 1 gm TP TID PRN 7 Days #2 oint...g. PRN Reason: rash/itching Azithromycin [Zithromax Z-SIGIFREDO] 0 mg PO DAILY #6 tab Referrals: PRIMARY CARE, [Primary Care Provider] - 3-5 Days Forms: Work/School Release Form(ED)
[2021-03-28 17:11] LABS: Basophils % (Auto) 0.5 % (0.0-1.8); Eosinophils % (Auto) 0.4 % (0.0-4.3); Hematocrit 38.5 % (30.3-42.9); Hemoglobin 12.4 gm/dl (10.1-14.3); Lymphocytes % (Auto) 11.3 % (13.4-35.0); Mean Corpuscular HGB Conc 32 % (30-34); Mean Corpuscular Volume 88 fl (79-97); Monocytes # (Auto) 0.3 K/mm3 (0.0-0.8); Monocytes % (Auto) 3.4 % (0.0-7.3); Platelet Count 171 K/mm3 (140-440); Red Blood Count 4.39 M/mm3 (3.65-5.03); Red Cell Distribution Width 14.5 % (13.2-15.2)
[2021-03-28 17:21] LABS: Bilirubin,Urine NEG (Negative); Blood,Urine NEG (Negative); Color,Urine Yellow (Yellow); Mucus,Urine FEW /HPF; Urobilinogen,Urine < 2.0 mg/dL (<2.0)
[2021-03-28 18:19] LABS: Alanine Aminotransferase 14 units/L (7-56); Albumin 3.1 g/dL (3.9-5); Blood Urea Nitrogen 7 mg/dL (7-17); Calcium 7.2 mg/dL (8.4-10.2); Hemolysis Index 36
[2021-03-28 18:24] LABS: BUN/Creatinine Ratio 18
[2021-03-28] MEDS ORDERED: diphenhydrAMINE 50 MG/ML VIAL IV ONE (18:26)
[2021-03-28] MEDS ORDERED: FAMOTIDINE 20 MG/2 ML INJ IV ONE (18:26)
[2021-03-28 19:52] VITALS: BP 128/32
[2021-03-28] MEDS ORDERED: IPRATROPIUM/ALBUTEROL SULFATE 3 ML AMPUL.NEB IH ONE (20:07)
== END 2021-03-28 20:47 | disposition home or self-care (01) ==
LOC: ED 15:31
DX: J06.9 Acute upper respiratory infection, unspecified (principal); L50.9 Urticaria, unspecified; I10 Essential (primary) hypertension; E11.9 Type 2 diabetes mellitus without complications; K21.9 Gastro-esophageal reflux disease without esophagitis; F17.200 Nicotine dependence, unspecified, uncomplicated
CPT/HCPCS: 36415; 71046; 80053; 81001; 82805; 82962; 85025; 87400; 96361; 96374; 96375; 99284; J1200; J3490; J7030; Q0162